=== PATIENT | female | born 1940 | race Caucasian/White ===

== ENCOUNTER 2016-05-21 05:48 | Day surgery (SDC) | payer OTHER, MEDICARE ==
[2016-05-13 10:07] VITALS: BMI 24.4
[2016-05-21] MEDS ORDERED: MIDAZOLAM HCL 2 MG/2 ML SINGLE DOSE VIAL ONE (06:53)
[2016-05-21] MEDS ORDERED: DEXAMETHASONE SOD PHOSPHATE/PF 10 MG/ML SDV ONE (06:53)
[2016-05-21] MEDS ORDERED: ROPIVACAINE HCL 0.5% 30ML VIAL ONE (06:53)
[2016-05-21] MEDS ORDERED: PROPOFOL 20 ML ONE ×7 (08:08→08:09)
[2016-05-21] MEDS ORDERED: ceFAZolin SODIUM 1 GM VIAL ONE (08:13)
[2016-05-21] MEDS ORDERED: SUCCINYLCHOLINE CHLORIDE 200 MG/10 ML VIAL ONE (08:14)
[2016-05-21 11:12] VITALS: BP 138/72; PULSE 67; TEMP 97.9
--- NOTE | 2016-05-26 13:12 | PATH ---
Surgical Pathology Report Patient Name: DIANA BAXTER [facility]. Rec. #: [id number] /Age/Gender: 1940 (Age: 76) / F Account: [id number] Location: [facility] Taken: 05/21/2016 Received: 05/21/2016 Reported: 05/26/2016 Physicians: Lucas Gonzalez M.D. Specimen(s) Received LEFT SHOULDER SHAVINGS Clinical History Left shoulder rotator cuff tear Final Diagnosis SHOULDER, LEFT, ARTHROSCOPIC SHAVINGS: FIBROSYNOVIAL TISSUE, BONE AND SKELETAL MUSCLE. Electronically Signed Jennifer Briceno M.D. Gross Description Received in formalin, labeled "left shoulder shavings," is a 4.5 x 4.0 x 0.4 cm. aggregate of pfeiffer-yellow soft tissue fragments. A resources representative portion is submitted in one cassette. /05/21/201605/21/2016
--- NOTE | 2016-05-30 22:31 | OP ---
DATE OF OPERATION: 05/21/2016 SURGEON: Lucas Lantigua M.D. [employer] ATTENDANT: Jaspreet Cortez PREOPERATIVE DIAGNOSIS: 1. Left shoulder rotator cuff tear. 2. Left shoulder impingement syndrome. 3. Left shoulder acromioclavicular degenerative joint disease. 4. Left shoulder superolateral to anterior-posterior synovitis. POSTOPERATIVE DIAGNOSIS: 1. Left shoulder rotator cuff tear. 2. Left shoulder impingement syndrome. 3. Left shoulder acromioclavicular degenerative joint disease. 4. Left shoulder superolateral to anterior-posterior synovitis. PROCEDURE: 1. Left shoulder arthroscopy with arthroscopic rotator cuff repair. 2. Left shoulder arthroscopy with subacromial decompression. 3. Left shoulder arthroscopy resection of the clavicle-acromioclavicular joint. 4. Left shoulder arthroscopy debridement, major. CPT CODE: 92637, 46747, 23862, 70381. FINDINGS: 1. Full thickness rotator cuff tear. 2. Extensive labral tearing anteriorly. 3. Antegrade 3 cartilage, glenoid, and anterior humerus. 4. Type 2 acromial and anterolateral spurring. 5. Inferior spurs of clavicle to acromioclavicular joint disease. 6. Thick scar tissue, subacromial space, most pronounced essentially at the AC joint laterally and anteriorly. 7. Full thickness rotator cuff tear, central supraspinatus. 8. Partial biceps tear, 10%. 9. Posterior labral fraying. REPAIR TYPE: Side to side repair was performed using 3 number 2 Fiberwire sutures, a final suture was placed across the anterior and posterior limbs and secured to bleeding bone bed using an opus anchor. PROCEDURE: Informed consent was obtained. The patient was taken to the operating room where the upper extremity was prepped and draped in a sterile fashion. The shoulder was manipulated for a full range of motion. Posterior incision portal was made and directed to glenohumeral joint. Under direct visualization, an anterior incision and portal was made. Extensive synovitis, as well as chondral injuries throughout the glenohumeral joint were dbrided and removed. Any identified labral injuries, including superior labral tear, anterior and posterior, and anterior labrum torn portions were removed as well. Rotator cuff was visualized and noted to have full-thickness tear. The edges were debrided. Posterior incision portal was redirected to subacromial space where a lateral incision portal was made. Excessive and thickened scar tissue noted throughout the subacromial space, including bursal and scar tissue, were removed. The type 2 acromion was converted into a flattened type 1 using a seble for subacromial decompression. Distal inferior spur at the distal clavicle was also dbrided with the use of accessory portal in the AC joint. The edges of the rotator cuff were identified. Sutures were placed into the rotator cuff and secured using anchors throughout the greater tuberosity. Prior to securing, a bleeding bed was made using a small seble, creating a bleeding surface of the rotator cuff insertion. The shoulder was then drained. A single suture as placed on all portals and a sterile dressing was placed. The patient was transferred to the recovery room without complication. Please note that this clavicle resection including incision of 1 cm undersurface of the clavicle through accessory portal. LUCAS LANTIGUA M.D. [id number]
== END 2016-05-21 10:45 | disposition home or self-care (01) ==
LOC: FASU 05:48
PROVIDERS: ATTEND Orthopaedic Surgery
PROC: 0RNK4ZZ Release Left Shoulder Joint, Percutaneous Endoscopic Approach (ICD-10-PCS; 2016-05-21)
PROC: 0PBB4ZZ Excision of Left Clavicle, Percutaneous Endoscopic Approach (ICD-10-PCS; 2016-05-21)
PROC: 0RBK4ZZ Excision of Left Shoulder Joint, Percutaneous Endoscopic Approach (ICD-10-PCS; 2016-05-21)
PROC: 0LQ24ZZ Repair Left Shoulder Tendon, Percutaneous Endoscopic Approach (ICD-10-PCS; principal; 2016-05-21 07:30)
DX: M75.122 Complete rotator cuff tear or rupture of left shoulder, not specified as traumatic (principal); M75.42 Impingement syndrome of left shoulder; M19.012 Primary osteoarthritis, left shoulder; M65.812 Other synovitis and tenosynovitis, left shoulder
CPT/HCPCS: 88304-TC